=== PATIENT | female | born 1945 | race Caucasian/White ===

== ENCOUNTER 2017-08-05 10:30 | Inpatient (IN) | payer MEDICARE ==
[2017-08-17] MEDS ORDERED: METOCLOPRAMIDE 10 MG TABLET PO ONE (06:00)
[2017-08-17] MEDS ORDERED: CELECOXIB 100 MG CAPSULE PO ONE (06:00)
[2017-08-17] MEDS ORDERED: CEFAZOLIN 2 Gram 2 GM/50 ML BAG IVPB ONE (06:00)
[2017-08-17] MEDS ORDERED: FAMOTIDINE 20MG TABLET PO ONE (06:00)
[2017-08-17] MEDS ORDERED: VANCOMYCIN HCL 1,000 MG in 0.9 % SODIUM CHLORIDE 250ML 250 ML IVPB ONE (06:00)
[2017-08-17] MEDS ORDERED: MECLIZINE 25 MG TABLET PO ONE (06:00)
[2017-08-17 07:38] LABS: ABO GROUP B; ANTIBODY SCREEN NEGATIVE (NEGATIVE); RH TYPE POSITIVE
[2017-08-17] MEDS ORDERED: TRANEXAMIC ACID 1,000 MG/10 ML ML IV ONE ×2 (10:29→16:22)
[2017-08-17] MEDS ORDERED: 0.9 % SODIUM CHLORIDE 10 ML VIAL IVP ONE (10:29)
[2017-08-17] MEDS ORDERED: TRAMADOL HCL 50 MG TABLET PO PRN (10:47)
[2017-08-17] MEDS ORDERED: DIPHENHYDRAMINE HCL 25 MG CAPSULE PO PRN (10:47)
[2017-08-17] MEDS ORDERED: HYDROMORPHONE HCL 2 MG/ML VIAL IM PRN (10:47)
[2017-08-17] MEDS ORDERED: ACETAMINOPHEN W/ CODEINE 300MG/60MG TABLET PO PRN (10:47)
[2017-08-17] MEDS ORDERED: NALOXONE 0.4 MG/1 ML VIAL IVP PRN (10:47)
[2017-08-17] MEDS ORDERED: AL HYDROX/MAG HYDROX 30ML UD PO PRN (10:47)
[2017-08-17] MEDS ORDERED: BISACODYL 10 MG SUPP RC PRN (10:47)
[2017-08-17] MEDS ORDERED: MAGNESIUM HYDROXIDE 30 ML UDC PO PRN (10:47)
[2017-08-17] MEDS ORDERED: ZOLPIDEM TARTRATE 5 MG TABLET PO PRN (10:47)
[2017-08-17] MEDS ORDERED: HYDROMORPHONE HCL 1MG/ML **SYRINGE IM PRN (10:47)
[2017-08-17] MEDS ORDERED: ACETAMINOPHEN 325 MG TAB PO PRN (10:47)
[2017-08-17] MEDS ORDERED: KETOROLAC 30 MG/ML VIAL IVP PRN ×2 (10:47)
[2017-08-17] MEDS: ONDANSETRON HCL IV 4 MG/2 ML VIAL IVP PRN ×2 (12:33→20:12)
[2017-08-17] MEDS: POTASSIUM CHLORIDE/D5-0.9%NACL 20 MEQ/1,000 ML BAG IV SCH ×2 (12:33→22:10)
[2017-08-17] MEDS ORDERED: KETOROLAC 30 MG/ML VIAL IVP ONE (14:00)
[2017-08-17] MEDS ORDERED: EPHEDRINE SULFATE 50 MG/ML ML IV ONE (14:00)
[2017-08-17] MEDS ORDERED: FENTANYL PF 100MCG/2ML VIAL IV ONE (14:00)
[2017-08-17] MEDS ORDERED: PROPOFOL 10 MG/ML VIAL IV ONE (14:00)
[2017-08-17] MEDS ORDERED: HYDROMORPHONE HCL 2 MG/ML VIAL IV ONE (14:00)
[2017-08-17] MEDS ORDERED: MIDAZOLAM HCL 2MG/2ML VIAL IV ONE (14:00)
--- NOTE | 2017-08-17 14:37 | Rehab Evaluation ---
Patient Information - Patient Information Diagnosis: DJD L knee Ordered Treatment: PT Evaluate and Treat Status: Initial Evaluation Surgery: Yes Date of Surgery: 08/17/17 Past Medical/Surgical Hx: PAST MEDICAL/SURGICAL HISTORY Surgery to Affected Area? No Recent Surgery? Past Surgical History 01/08 RTKA; R breast surgery for excessive tissue -benign; D&C's X2 50 years ago PMH - Respiratory Hx Respiratory Disorders No PMH - Cardiovascular Hx Cardiovascular Disorders Yes Hx Edema Yes: R leg after RTKA Hx Hypertension Yes: Controlled on Lisinopril Exercise Tolerance Fair PMH - Neuro Hx Neurological Disorders No PMH - GI Hx Gastrointestinal Disorders Yes Comment: chronic constipation PMH - Hx Age of Menopause 53 Patient No PMH - Endocrine Hx Endocrine Disorders No PMH - Musculoskeletal Hx Musculoskeletal Disorders Yes Hx Arthritis Yes: ; painful, decreased mobility PMH - Psych Hx Psychiatric Problems No PMH - Hematology/Oncology Hx Hematology/Oncology No Disorders Premorbid Status: Detail (The patient was independent with all mobility. The patient was independent with all ADL's and household tasks.) Social History: Detail (The patient lives in a single story home with spouse with 4 steps at the enterance with one railing. The patient's bathroom is equipped with a tub/shower combination with a grab bar and a toilet with a riser seat and a grab bar. The patient has her own walker with wheels.) Precautions: [place], Fall, Other (WBAT on the L LE.) - Time With Patient Total Time Spent With Patient (Min): 30 Treatment Procedures: Detail (Initial Evaluation) Subjective Information - Subjective Information Per Patient (The patient had no complaints of pain. The patient had complaints of nausea and vomitted throughout treatment.) Objective Data - Mental Status Patient Orientation: Oriented x3 - Visual Perception Appears within normal limits for therapeutic activities - ROM Not within normal limits (The patient's LE AROM was WNL except for L knee AROM which was not tested do to S/P surgery.) - Strength/Tone Not within normal limits (The patient's R LE strength was WNL. The patient's L LE was not tested secondary to S/P surgery, howver the patient's strength was functional ( The patient was able to complete a SLR.)) - Bed Mobility Independent (The patient was independent with supine to and from sit transfer.) - Transfers Needs Assist (The patient sat on the edge of the bed and was not able to stand secondary to vertigo. " The room is spinning.") - Balance Balance Sitting: Good - Sensation Intact - Gait Detail (The patient did not ambulate secondary to vertigo when sitting up. The patient 's symptoms did not clear after sitting up for 5 minutes.) Therapy Assessment - Therapy Assessment Detail (The patient was independent with bed mobility. The patient 's mobility was limited secondary to nausea and vertigo. Feel the patient will progress well once her symptoms of nausea and vertigo diminish.) Problem List - Problem List Physical Therapy Problem List: Detail (1) Decreased L knee AROM and strength 2) Nonambulatory 3) Nausea and Vertigo when in a sitting position) Goals - Goals Physical Therapy Goals: 1) The patient will be independent with ambulation household distances with assistive device WBAT on the L LE. 2) The patient will ambulate on stairs with supervision for safety WBAT on the L LE. 3) The patient will be independent with all transfers. 4) The patient will be independent with a HEP. Prognosis - Prognosis Good Plan - Plan Physical Therapy Plan: PT 1-2 times a day for gait training, transfer training, LE AROM and strengthening exercise and instruction in a HEP.
--- NOTE | 2017-08-17 16:12 | Operative Note ---
DATE: 08/17/2017 PREOPERATIVE DIAGNOSIS: END-STAGE ARTHROSIS OF THE LEFT KNEE. POSTOPERATIVE DIAGNOSIS: END-STAGE ARTHROSIS OF THE LEFT KNEE. PROCEDURE: Cemented left total knee arthroplasty using [employer] Jasmin with two components with a size 4 Oxinium femur, size 3 stemmed tibia base plate, a 9 mm lift tibial insert, and a size 35 all-plastic patella. STAFF SURGEON: BETTE FLORES M.D. ANESTHESIA: SPINAL. PREPARATION: CHLORAPREP. INDIVIDUAL CONSIDERATIONS: NONE. PROCEDURE: The patient was taken to the Operating Room and placed supine on the operating table. She had the successful induction of a spinal anesthetic. Her left lower extremity was prepped and draped in the usual fashion. The limb was elevated and the tourniquet was inflated to 250 mmHg. The patient had a midline approach to the knee. Sharp dissection was carried down through the skin and subcutaneous tissue. The small veins were coagulated with a Bovie. A medial arthrotomy was performed. The patella was everted and the knee was flexed. She had exposed bone throughout. The fat pad was resected, ACL was sacrificed, provisional anterior meniscectomies were performed, and the capsule was released from the medial proximal tibia. The initial femoral airplane pilot supervisor hole was then made freehand. It was cut in 7 degrees of valgus and set for 10 mm resection and secured with pins. When cutting, care was taken to preserve not to notch the femur. The anterior and posterior cuts followed by chamfer cuts were made after the initial transverse cut was made. It was found that a size 4 would be appropriate. Osteophytes were removed and a size 4 trial was placed and found to fit well. The tibia was brought forward and the remainder of the meniscal remnants were removed with a Bovie. The extra-articular tibia cutting jig was placed and it was cut in neutral with a 3-degree AP slope. Care was taken to adjust the rotation and flexion using the extra-articular alignment guide and Bovie landmarks. Care was taken when cutting the tibia to preserve the PCL insertion on the tibia. Osteophytes were removed. It was found that a size 3 baseplate would fit appropriately. It was adjusted for rotation and secured with pins. Now with a size 4 trial, the 9.0-mm trial, and the trial baseplate, there was excellent motion and stability. Ligamentous balance, rotation, and alignment were thought to be normal. The femoral airplane pilot supervisor holes were impacted, and the triflange tibial stamp was impacted, and these trial components were removed. The patient had a highly round-down patella but I was able to just basically skim off the osteophytes then leave about 13 to 14 mm and was able to fit a 35 patella then the three airplane pilot supervisor holes were drilled. The tourniquet was let down briefly to get bleeders posteriorly then placed back up again. The knee was then thoroughly irrigated out with pulsatile Betadine and saline to remove any visual or palpable debris. Bony surfaces were then dried. A size 3 stem tibial baseplate was cemented into place, followed by impaction of a 9 mm lift tibial insert, followed by cementing of a size 4 Oxinium femur, followed by cementing of a 35 mm all-plastic patella. Implant surfaces were compressed, excess cement was removed, and after the cement had set, there was excellent motion and stability. Ligamentous balance, rotation alignment, and patellofemoral tracking were normal after I did a limited lateral release because she had a valgus knee. After irrigation, the tourniquet was let down and hemostasis was obtained with the Bovie. Again, thorough irrigation to remove any visual or palpable debris. The subcut and periosteum were then infiltrated with 30 mL of 0.75% Marcaine with Epinephrine. The capsule was then closed with a running #2 Quill, subcut was closed in layers with running #0 Quill, and the skin was closed with ender. The patient did receive a gram of Tranexamic Acid preoperatively. We mixed a gram of Tranexamic Acid with 40 mL of saline and injected into the knee through a sterile 18-gauge needle and sterile Bulkee compressive Aquacel-type dressing was applied. The patient tolerated the procedure well. Needle and sponge counts were correct. Estimated blood loss was less than 75 mL. She was taken back to Recovery in good condition. There were no complications. cc: Dr. Eliel Dorman JOB NUMBER: [id number] MTDD
[2017-08-17] MEDS ORDERED: BUPIVACAINE 0.75% W/EPI MPF 30ML VIAL IVP ONE (16:22)
[2017-08-17] MEDS: CEFAZOLIN 2 Gram 2 GM/50 ML BAG IVPB SCH (18:20)
[2017-08-17] MEDS: DOCUSATE SODIUM 100 MG CAPSULE PO SCH (22:09)
[2017-08-17] MEDS: PATIENT OWN MED: LOVASTATIN 20 MG PO SCH (22:09)
[2017-08-18] MEDS: CEFAZOLIN 2 Gram 2 GM/50 ML BAG IVPB SCH ×2 (02:24→11:14)
[2017-08-18 06:42] LABS: HEMATOCRIT 38.2 % (35.0-47.0); HEMOGLOBIN 12.3 gm/dl (11.6-16.0)
[2017-08-18 06:55] LABS: BLOOD UREA NITROGEN 17 mg/dL (8-23); CREATININE 0.6 mg/dL (0.5-0.9); EST GLOMERULAR FILTRATION RATE > 60 mL/min; GLUCOSE,RANDOM 106 mg/dL (74-109)
[2017-08-18] MEDS: ACETAMINOPHEN W/ CODEINE 300MG/60MG TABLET PO PRN ×2 (08:58→14:54)
[2017-08-18] MEDS: ASPIRIN 81 MG TABEC PO SCH (09:41)
[2017-08-18] MEDS: DOCUSATE SODIUM 100 MG CAPSULE PO SCH ×2 (09:41→21:58)
[2017-08-18] MEDS: FERROUS SULFATE 325 MG TAB PO SCH (09:42)
[2017-08-18] MEDS: RIVAROXABAN 10 MG TABLET PO SCH (09:42)
[2017-08-18] MEDS: HCTZ PO SCH (09:42)
[2017-08-18] MEDS: LISINOPRIL PO SCH (09:42)
--- NOTE | 2017-08-18 11:56 | Rehab Evaluation ---
Patient Information - Patient Information Diagnosis: DJD L knee Ordered Treatment: OT Evaluate and Treat Status: Initial Evaluation Surgery: Yes Date of Surgery: 08/17/17 Past Medical/Surgical Hx: PAST MEDICAL/SURGICAL HISTORY Surgery to Affected Area? No Recent Surgery? Past Surgical History 01/08 RTKA; R breast surgery for excessive tissue -benign; D&C's X2 50 years ago PMH - Respiratory Hx Respiratory Disorders No PMH - Cardiovascular Hx Cardiovascular Disorders Yes Hx Edema Yes: R leg after RTKA Hx Hypertension Yes: Controlled on Lisinopril Exercise Tolerance Fair PMH - Neuro Hx Neurological Disorders No PMH - GI Hx Gastrointestinal Disorders Yes Comment: chronic constipation PMH - Hx Age of Menopause 53 Patient No PMH - Endocrine Hx Endocrine Disorders No PMH - Musculoskeletal Hx Musculoskeletal Disorders Yes Hx Arthritis Yes: ; painful, decreased mobility PMH - Psych Hx Psychiatric Problems No PMH - Hematology/Oncology Hx Hematology/Oncology No Disorders Premorbid Status: Detail (The patient was independent with all mobility. The patient was independent with all ADL's and household tasks.) Social History: Detail (The patient lives in a single story home with spouse with 4 steps at the entrance with one railing. The patient's bathroom is equipped with a tub/shower combination with a grab bar and a toilet with a riser seat and a grab bar. The patient has her own walker with wheels, and a informaticist.) Precautions: [place], Fall, Other (WBAT on the L LE.) - Time With Patient Total Time Spent With Patient (Min): 30 Subjective Information - Subjective Information Per Patient Objective Data - Pain Pain Present: Yes (L knee) - Mental Status Patient Orientation: Oriented x3 - Visual Perception Appears within normal limits for therapeutic activities - ROM Within normal limits (BUE) - Strength/Tone Within normal limits (BUE) - Coordination Appears within normal limits for therapeutic activities - Bed Mobility Independent - Sensation Intact (BUE) - ADL's/IADL's Detail (Pt. declined to participate in ADL's (such as sit EOB to don socks) d/t high pain level. Nursing was administering pain medication. Pt. is well equipped and aware of dressing techniques from previously having R knee sx. Pt. verbalized how she would get dressed and shower. Pt. has a informaticist at home if needed. Pt.'s will be present to assist as needed. Pt. plans to sponge bathe until she feels comfortable/strong enough to grinder operator external tool the shower. Educ. provided on sock aid, reminders of how to use informaticist for dressing, and dressing techniques. Pt. verbalized understanding.) Therapy Assessment - Therapy Assessment Detail (Pt. has a positive support system if assistance is needed, and is well equipped or knows how to obtain additional AE if needed. Pt. has experience of this process d/t previous knee sx. and has a plan of how to perform ADL's. OT services not recommended at this time.) Patient Education - Patient Education Teaching Topic: Equipment Use Response: Verbalize Understanding Teaching Method: Discussion, Demonstration Teaching Recipient: Patient Barriers To Learning: None Problem List - Problem List Physical Therapy Problem List: Detail (1) Decreased L knee AROM and strength 2) Nonambulatory 3) Nausea and Vertigo when in a sitting position) Goals - Goals Physical Therapy Goals: 1) The patient will be independent with ambulation household distances with assistive device WBAT on the L LE. 2) The patient will ambulate on stairs with supervision for safety WBAT on the L LE. 3) The patient will be independent with all transfers. 4) The patient will be independent with a HEP. Prognosis - Prognosis Good Plan - Plan Physical Therapy Plan: PT 1-2 times a day for gait training, transfer training, LE AROM and strengthening exercise and instruction in a HEP. Occupational Therapy Plan: OT services not recommended at this time; d/c from OT services.
--- NOTE | 2017-08-18 13:39 | Physical Therapy Tx Note ---
Physical Therapy Tx Note - Treatment Note Tolerated: Good Total Time Spent With Patient: 30 Physical Therapy Tx Note: Detail (Pt lying in bed upon arrival, awake/alert, cooperative for therapy. Denies nausea/vertigo, but having more pain today. Just received pain med. Reviewed LE exercises: ankle pumps, quad sets, hamstring sets, heel slides, hip abduction. CGA for bed mobility, to come to sitting at edge of bed. Sit/stand transfer to front-wheeled walker w/CGA, ambulated 200 feet on level surface w/front wheeled walker WBAT L LE w/CGA/SBA. Independently got back into bed. Cryopack and intermittent compression reapplied; call light and bedside table in reach.) Physical Therapy Problem List: Detail (1) Decreased L knee AROM and strength 2) Nonambulatory 3) Nausea and Vertigo when in a sitting position) Physical Therapy Goals: 1) The patient will be independent with ambulation household distances with assistive device WBAT on the L LE. 2) The patient will ambulate on stairs with supervision for safety WBAT on the L LE. 3) The patient will be independent with all transfers. 4) The patient will be independent with a HEP. Prognosis: Good Physical Therapy Plan: See patient this afternoon for stair training and review of HEP.
--- NOTE | 2017-08-18 15:50 | Physical Therapy Tx Note ---
Physical Therapy Tx Note - Treatment Note Tolerated: Good Total Time Spent With Patient: 35 Physical Therapy Tx Note: Detail (Pt reclining in bed upon arrival, awake/alert , cooperative for therapy. Light CGA for moving L LE across bed to sit up at bedside. Independently stood at front-wheeled walker to don robe, good standing balance. Ambulated to stairwell door (about 54 feet), descended/ ascended three steps w/front wheeled walker for assist on other side of rail, w/ CGA. Ambulated to PACU doors (68 feet) and returned to room (about 120 feet) with front-wheeled walker w/SBA. Independently doffed robe and got into bed w/ light CGA for L LE. Re-applied cryopack and intermittent compression stockings ; call light and bedside table placed within reach. in room. Nrsg notified that pt passed all PT skills.) Physical Therapy Problem List: Detail (1) Decreased L knee AROM and strength 2) Nonambulatory 3) Nausea and Vertigo when in a sitting position) Physical Therapy Goals: 1) The patient will be independent with ambulation household distances with assistive device WBAT on the L LE - met. 2) The patient will ambulate on stairs with supervision for safety WBAT on the L LE - met. 3) The patient will be independent with all transfers - met. 4) The patient will be independent with a HEP - met. Prognosis: Good Physical Therapy Plan: Pt has passed all ambulation, stair, and exercise skills for discharge home. She is scheduled to begin home therapy tomorrow or the next day. She is discharged from inpatient physical therapy at this time.
[2017-08-18] MEDS: POTASSIUM CHLORIDE/D5-0.9%NACL 20 MEQ/1,000 ML BAG IV SCH (21:57)
[2017-08-18] MEDS: PATIENT OWN MED: LOVASTATIN 20 MG PO SCH (22:06)
[2017-08-19] MEDS: POTASSIUM CHLORIDE/D5-0.9%NACL 20 MEQ/1,000 ML BAG IV SCH ×2 (05:32→05:42)
[2017-08-19] MEDS: ACETAMINOPHEN W/ CODEINE 300MG/60MG TABLET PO PRN ×2 (05:43→10:30)
[2017-08-19 06:55] LABS: HEMATOCRIT 37.6 % (35.0-47.0)
[2017-08-19 07:10] LABS: BLOOD UREA NITROGEN 10 mg/dL (8-23); CREATININE 0.5 mg/dL (0.5-0.9); EST GLOMERULAR FILTRATION RATE > 60 mL/min; GLUCOSE,RANDOM 124 mg/dL (74-109)
[2017-08-19] MEDS: ASPIRIN 81 MG TABEC PO SCH (09:14)
[2017-08-19] MEDS: DOCUSATE SODIUM 100 MG CAPSULE PO SCH (09:14)
[2017-08-19] MEDS: RIVAROXABAN 10 MG TABLET PO SCH (09:15)
[2017-08-19] MEDS: FERROUS SULFATE 325 MG TAB PO SCH (09:15)
[2017-08-19] MEDS: LISINOPRIL PO SCH (09:16)
[2017-08-19] MEDS: HCTZ PO SCH (09:16)
--- NOTE | 2017-08-19 16:53 | Discharge Summary ---
DATE OF ADMISSION: 08/17/17 DATE OF DISCHARGE: 08/19/17 DATE OF SURGERY: 08/17/17 HISTORY: Mrs. Yin is a delightful 72-year-old female who presents with end- stage arthrosis of her left knee. She was admitted after left total knee arthroplasty. Postoperatively, she did well except for a little bit of pain and discomfort. She was independent by the first postoperative day but she wanted to stay another day because she was feeling tired. Her hospital course was essentially unremarkable. Discharge hemoglobin was 12. DISCHARGE INSTRUCTIONS: The plan is to discharge her to home in the care of her family. She will be given Tylenol #4 for pain and Xarelto for DVT prophylaxis. The Visiting Nurse will remove her sutures in two weeks and she will follow-up in my office in four weeks. FINAL DIAGNOSIS/PRIMARY DIAGNOSIS: END-STAGE ARTHROSIS OF THE LEFT KNEE. OPERATIONS AND PROCEDURES: CEMENTED LEFT TOTAL KNEE ARTHROPLASTY. DISCHARGE CONDITION: GOOD. JOB NUMBER: [id number] MTDD
== END 2017-08-19 10:42 | disposition home or self-care (01) | DRG 470 ==
LOC: MEDSURG 08-17 06:48
PROVIDERS: ADMIT Orthopaedic Surgery; ATTEND Orthopaedic Surgery
PROC: 0SRD069 Replacement of Left Knee Joint with Oxidized Zirconium on Polyethylene Synthetic Substitute, Cemented, Open Approach (ICD-10-PCS; principal; 2017-08-17 09:00)
DX: M17.12 Unilateral primary osteoarthritis, left knee (principal); I10 Essential (primary) hypertension; E78.00 Pure hypercholesterolemia, unspecified
CPT/HCPCS: 80048; 85014; 85018; 86850; 86900; 86901; 94760; 97165; 97530; 99232; 99239; C1776; J1885; J2405; J3480; J3490; J7050